=== PATIENT | female | born 1960 | race Caucasian/White ===

== ENCOUNTER 2024-03-26 16:27 | Observation (INO) ==
[2024-03-26] MEDS: Iodixanol (CONTRAST) 320 MG/ML 100 ML SDV IV ONE (16:44)
[2024-03-26] MEDS ORDERED: TENECTEPLASE 50 MG VIAL KIT 5 MG/ML (reconstituted) IV ONE (16:47)
[2024-03-26 16:48] LABS: ABS Lymphocytes 1.5 10^3/uL (1.0-4.8); ABS Monocytes 0.2 10^3/uL (0.0-0.9); ABS Neutrophils 5.3 10^3/uL (1.5-7.6); Eosinophil % 0.2 %; Hematocrit 43.8 % (35-45); Hemoglobin 14.9 g/dL (11.5-14.3); Lymphocyte % 20.7 %; Mean Corpuscular Hemoglobin 31.3 pg (27-33); Mean Corpuscular Hgb Conc 34.1 g/dL (31-36); Mean Corpuscular Volume 91.9 fL (80-97); Mean Platelet Volume 7.7 fL (7.5-11.2); Platelet Count 256 10^3/uL (150-450); Red Blood Count 4.76 10^6/uL (3.63-4.92); Red Cell Distribution Width 13.5 % (12-17); White Blood Count 7.1 10^3/uL (3.8-11.8)
[2024-03-26 17:00] LABS: Activated Partial Thrombo Time 26.4 seconds (26.0-38.0); INR 0.92 (0.83-1.13)
[2024-03-26 17:45] LABS: ALT 25 U/L (7-52); Albumin 4.9 g/dL (3.2-5.2); Alkaline Phosphatase 67 U/L (35-149); Blood Urea Nitrogen 18 mg/dL (6-24); CO2 Carbon Dioxide 25 mmol/L (22-32); Calcium 9.8 mg/dL (8.6-10.3); Chloride 102 mmol/L (101-111); Cholesterol 203 mg/dL; Creatinine, Serum 0.86 mg/dL (0.51-0.95); Globulin 2.4 g/dL (2-4); Glucose 116 mg/dL (70-100); HDL Cholesterol 54.3 mg/dL; LDL Cholesterol 119 mg/dL; Sodium 135 mmol/L (135-145); Total Bilirubin 0.8 mg/dL (0.2-1.0); Total Protein 7.3 g/dL (6.4-8.9); Triglycerides 151 mg/dL; eGFR CKD-EPI 76.8 (>60)
[2024-03-26 17:51] LABS: Anion Gap 8 mmol/L (2-16)
[2024-03-26 20:06] LABS: Urine Appearance Clear; Urine Bilirubin Negative (Negative); Urine Blood Negative (Negative); Urine Color Colorless; Urine Glucose Negative (Negative); Urine Ketones Negative (Negative); Urine Nitrite Negative (Negative); Urine Protein Negative (Negative); Urine Specific Gravity 1.017 (1.002-1.030); Urine Urobilinogen Negative (Negative); Urine pH 6.5 (5.0-8.0)
[2024-03-26 20:28] LABS: Direct Bilirubin Redraw 0.1 mg/dL (0.1-0.5); Potassium Redraw 3.8 mmol/L (3.5-5.0)
[2024-03-26 21:04] LABS: High Sensitivity Troponin 1 Hr 5 pg/mL (<15)
[2024-03-27] MEDS: Enoxaparin 40 MG/0.4 ML SYR SUBCUT SCH (00:35)
[2024-03-27 05:33] VITALS: BP 110/66
[2024-03-27 06:44] LABS: ABS Eosinophils 0.1 10^3/uL (0.0-0.5); ABS Lymphocytes 2.1 10^3/uL (1.0-4.8); ABS Monocytes 0.4 10^3/uL (0.0-0.9); ABS Neutrophils 4.3 10^3/uL (1.5-7.6); Hematocrit 40.5 % (35-45); Lymphocyte % 30.1 %; Mean Corpuscular Hemoglobin 31.4 pg (27-33); Mean Corpuscular Hgb Conc 34.5 g/dL (31-36); Mean Corpuscular Volume 90.9 fL (80-97); Mean Platelet Volume 7.6 fL (7.5-11.2); Nucleated Red Blood Cells % 0.1 %/100WBC (0.0-0.8); Platelet Count 238 10^3/uL (150-450); Red Blood Count 4.46 10^6/uL (3.63-4.92); Red Cell Distribution Width 13.4 % (12-17); White Blood Count 6.9 10^3/uL (3.8-11.8)
[2024-03-27 07:13] LABS: Calcium 9.1 mg/dL (8.6-10.3); eGFR CKD-EPI 64.1 (>60)
[2024-03-27] MEDS: Aspirin EC 81 mg TAB.EC (enteric coated) PO SCH (08:34)
== END 2024-03-27 09:50 | disposition home or self-care (01) ==
LOC: ED 16:27 → EDHOLD 16:27 → SUATTDRO 17:52 → MEDTELE 19:44
PROVIDERS: ADMIT Internal Medicine; ATTEND Student in an Organized Health Care Education/Training Program